=== PATIENT | female | born 1965 | race Caucasian/White ===

== ENCOUNTER → 2017-01-21 | Outpatient (REF) | payer BC, OTHER ==
[~2017-01-21] MED LIST: SERT25TA PO; VIMOVO PO
[2017-01-21 13:21] LABS: AMYLASE 87 U/L (25-115)
== END ==
LOC: M LAB REF 11:45
PROVIDERS: ATTEND Nurse Practitioner Family
DX: R10.9 Unspecified abdominal pain (principal)

== ENCOUNTER → 2017-03-10 | Outpatient (REF) | payer BC, OTHER ==
[2017-03-10 12:29] LABS: FERRITIN 128 NG/ML (8-252); GAMMA GLUTAMYLTRANSPEPTIDASE 175 U/L (5-55)
== END ==
LOC: M LAB REF 11:52
PROVIDERS: ATTEND Family Medicine
DX: R74.0 Nonspecific elevation of levels of transaminase and lactic acid dehydrogenase [LDH] (principal)

== ENCOUNTER → 2017-03-10 | Outpatient (REF) | payer BC, OTHER | LOC: M LAB REF 12:57 | PROVIDERS: ATTEND Family Medicine | DX: R74.0 Nonspecific elevation of levels of transaminase and lactic acid dehydrogenase [LDH] (principal) ==

== ENCOUNTER → 2017-03-25 | Outpatient (CLI) | payer BC, OTHER ==
[~2017-03-25] VITALS: Ht 152.4 cm; Wt 65.8 kg
[~2017-03-25] MED LIST changes: +NS 1,000 ML IV ONE; +PROPOFOL 200 MG/20 ML VIAL As Ordered ONE; +SIMETHICONE 40MG/0.6ML DROPS 30ML As Ordered ONE
--- NOTE | 2017-03-25 07:51 | ROOR ---
Patient Name: Aury Silva Procedure Date: 03/25/2017 7:29 AM Date of : 1965 Age: 51 Room: [facility] Gender: Female Note Status: Finalized Procedure: Colonoscopy Indications: Screening for colorectal malignant neoplasm Providers: Kieran Minaya Jr, MD Referring MD: Frankie Campbell MD Requesting Provider: Medicines: Propofol per Anesthesia Complications: No immediate complications. Procedure: Pre-Anesthesia Assessment: - Prior to the procedure, a History and Physical was performed, and patient medications and allergies were reviewed. The patient is competent. The risks and benefits of the procedure and the sedation options and risks were discussed with the patient. All questions were answered and informed consent was obtained. Patient identification and proposed procedure were verified by the physician and the nurse in the pre-procedure area and in the procedure room. Mental Status Examination: alert and oriented. Airway Examination: normal oropharyngeal airway and neck mobility. Respiratory Examination: clear to auscultation. CV Examination: normal. ASA Grade Assessment: II - A patient with mild systemic disease. After reviewing the risks and benefits, the patient was deemed in satisfactory condition to undergo the procedure. The anesthesia plan was to use moderate sedation / analgesia (conscious sedation). Immediately prior to administration of medications, the patient was re-assessed for adequacy to receive sedatives. The heart rate, respiratory rate, oxygen saturations, blood pressure, adequacy of pulmonary ventilation, and response to care were monitored throughout the procedure. The physical status of the patient was re-assessed after the procedure. The Colonoscope was introduced through the anus and advanced to the cecum, identified by appendiceal orifice and ileocecal valve. The colonoscopy was performed without difficulty. The patient tolerated the procedure well. The quality of the bowel preparation was adequate and excellent. Findings: The perianal and digital rectal examinations were normal. Pertinent negatives include normal sphincter tone, no palpable rectal lesions and no anal lesion or abnormality was detected. The rectum, recto-sigmoid colon, descending colon, transverse colon, ascending colon, cecum, appendiceal orifice and ileocecal valve appeared normal. A few small-mouthed diverticula were found in the sigmoid colon. Impression: - The rectum, recto-sigmoid colon, descending colon, transverse colon, ascending colon, cecum, appendiceal orifice and ileocecal valve are normal. - Diverticulosis in the sigmoid colon. - No specimens collected. Recommendation: - Discharge patient to home (ambulatory). - Repeat colonoscopy in 10 years for screening purposes. Kieran Minaya MD Kieran Minaya Jr, MD 03/25/2017 7:50:45 AM This report has been signed electronically. Number of Addenda: 0 Note Initiated On: 03/25/2017 7:29 AM Estimated Blood Loss: Estimated blood loss: none.
[2017-03-25 08:10] VITALS: BP 118/80
== END | disposition home or self-care (01) ==
LOC: M OPP 06:26
PROVIDERS: ATTEND Surgery
DX: Z12.11 Encounter for screening for malignant neoplasm of colon (principal); K57.30 Diverticulosis of large intestine without perforation or abscess without bleeding; M19.90 Unspecified osteoarthritis, unspecified site; Z88.0 Allergy status to penicillin; Z88.8 Allergy status to other drugs, medicaments and biological substances; Z91.018 Allergy to other foods; Z79.899 Other long term (current) drug therapy

== ENCOUNTER → 2017-04-14 | Outpatient (REF) | payer BC, OTHER ==
[~2017-04-14] MED LIST changes: -NS 1,000 ML IV ONE; -PROPOFOL 200 MG/20 ML VIAL As Ordered ONE; -SIMETHICONE 40MG/0.6ML DROPS 30ML As Ordered ONE
[2017-04-14 14:38] LABS: HEPATITIS B SURFACE ANTIBODY NEGATIVE (POSITIVE)
[2017-04-14 15:46] LABS: FERRITIN 72 NG/ML (8-252); PERCENT SATURATION 30.4 % (13.2-45.0); TOTAL IRON BINDING CAPACITY 359 UG/DL (250-450)
== END ==
LOC: M LAB REF 13:22
PROVIDERS: ATTEND Family Medicine
DX: R94.5 Abnormal results of liver function studies (principal)

== ENCOUNTER → 2017-07-29 | Outpatient (CLI) | payer BC, OTHER ==
--- NOTE | 2017-07-29 09:22 | REPMRS ---
Patient History The patient states she had a clinical breast exam in June 2017.No known family history of cancer. Reductions of both breasts, July 2012. Taking hormonal contraceptives for 1 year. Digital Mammo Screening Bilat: July 29, 2017 - Exam #: [id number] Bilateral CC and MLO view(s) were taken. Technologist: Argenis Gomes Technologist Prior study comparison: July 27, 2016, bilateral digital mammo screening bilat performed at [facility]. May 16, 2015, bilateral digital mammo screening bilat performed at [facility]. May 14, 2014, bilateral digital mammo screening bilat performed at [facility]. FINDINGS: The breast tissue is heterogeneously dense. This may lower the sensitivity of mammography. There is a moderate amount of heterogeneously dense fibroglandular tissue which is fairly symmetric. There is no interval development of dominant mass, architectural distortion, or clustered microcalcification typical of malignancy. There has been no change in the appearance of the mammogram from the prior studies. ASSESSMENT: BI-RADS/ACR category 1 mammogram. Negative. Recommendation Routine screening mammogram of both breasts in 1 year (for women over age 40). This mammogram was interpreted with the aid of an FDA-approved computer-aided dectection system. Electronically Signed By: Esau Nolan MD 07/29/17 0922
== END ==
LOC: M RAD 08:20
PROVIDERS: ATTEND Family Medicine
DX: Z12.31 Encounter for screening mammogram for malignant neoplasm of breast (principal)

== ENCOUNTER → 2017-08-19 | Outpatient (CLI) | payer BC, OTHER ==
--- NOTE | 2017-08-19 14:19 | REP ---
MRI LUMBAR SPINE WITHOUT CONTRAST: HISTORY: Degenerative disc disease. Low back pain with bilateral lower extremity numbness and tingling. TECHNIQUE: Sagittal and axial T1 and T2-weighted scans are acquired in the usual fashion with and without fat saturation. Sequences include spin echo, turbo spin echo, and STIR imaging sequences. MRI FINDINGS: Lumbar vertebral body heights are preserved. Alignment is normal. There is a small hemangioma in the right side of the L 2 vertebral body. Cortical and medullary bone signal intensity are otherwise normal. Conus medullaris is normal in position and appearance at L1. There are mild degenerative disc changes at L3-4 and L4-5 and to some degree at L5-S1. No extra vertebral abnormality is seen. Normal caliber aorta is noted. Axial and sagittal images at L1-2 and L2-3 show no significant abnormality. At L3-4, there is mild disc bulging diffusely. No neural foraminal narrowing or central canal stenosis is seen. There is mild facet hypertrophy at L3-4 and a small quantity of facet joint fluid is seen bilaterally. At L4-5, there is mild central canal stenosis due to diffuse disc bulging and ligamentum flavum and facet hypertrophy and developmentally somewhat short pedicles. Thecal sac has a mid sagittal AP dimension of 9 mm. No neural foraminal encroachment is seen. At L5-S1, there is moderate facet hypertrophy bilaterally. No other significant abnormality. IMPRESSION: Mild central canal stenosis and L4-5. Signed by Mane Nolan MD 08/19/2017 04:00 P
== END ==
LOC: M RAD 08:48
PROVIDERS: ATTEND Orthopaedic Surgery
DX: M51.37 Other intervertebral disc degeneration, lumbosacral region (principal); M51.36 Other intervertebral disc degeneration, lumbar region

== ENCOUNTER → 2018-08-02 | Outpatient (CLI) | payer BC, OTHER | LOC: M RAD 07:24 | DX: R92.2 Inconclusive mammogram (principal); R92.0 Mammographic microcalcification found on diagnostic imaging of breast | CPT/HCPCS: 77067 ==

== ENCOUNTER → 2018-08-25 | Outpatient (CLI) | payer BC, OTHER ==
--- NOTE | 2018-08-25 09:10 | REP ---
DIAGNOSTIC MAMMOGRAM LEFT BREAST: Multiple magnification views of the left breast performed and correlated with the recent mammogram of 08/02/2018. These magnification views confirm the presence of multiple clustered pleomorphic microcalcifications medially in the left breast somewhat superiorly. These are suspicious and biopsy is recommended. IMPRESSION: ACR 4 suspicious. Clustered pleomorphic microcalcifications in the upper inner left breast for which stereotactic biopsy is recommended. ACR 4 suspicious. BI-RADS/ACR category 4 mammogram. Suspicious abnormality - biopsy should be considered. Usually requires biopsy. This mammogram was interpreted with the aid of an FDA-approved computer-aided detection system. A. Negative x-ray reports should not delay biopsy if a dominant or clinically suspicious mass is present. B. Four to eight percent of cancers are not identified by x-ray. C. Adenosis and dense breasts may obscure an underlying neoplasm. The patient letter being requested is M4. Electronically Signed by Mika Menjivar MD 08/25/2018 11:45 A
== END ==
LOC: M RAD 08:31
PROVIDERS: ATTEND Obstetrics & Gynecology
DX: R92.0 Mammographic microcalcification found on diagnostic imaging of breast (principal)

== ENCOUNTER → 2019-01-26 | Outpatient (REF) | payer BC, OTHER ==
[~2019-01-26] MED LIST changes: -SERT25TA PO; +SERT25TA85 PO
[2019-01-26 12:11] LABS: ALBUMIN 4.4 GM/DL (3.2-5.2); ALT/SGPT 120 U/L (12-78); BLOOD UREA NITROGEN 12 MG/DL (7-18); CALCIUM LEVEL 9.7 MG/DL (8.5-10.1); CARBON DIOXIDE LEVEL 28 MEQ/L (21-32); CHLORIDE LEVEL 108 MEQ/L (98-107); CHOLESTEROL LEVEL 246 MG/DL (<200); CHOLESTEROL RISK RATIO 4.823 (<5); CREATININE FOR GFR 0.84 MG/DL (0.55-1.30); GLOMERULAR FILTRATION RATE > 60.0 (>51); GLUCOSE, FASTING 95 MG/DL (70-100); HDL CHOLESTEROL 51 MG/DL (>40); LDL CHOLESTEROL 171 MG/DL (<100); NON-HDL-C 195 MG/DL; POTASSIUM SERUM 4.4 MEQ/L (3.5-5.1); SODIUM LEVEL 142 MEQ/L (136-145); TOTAL PROTEIN 7.8 GM/DL (6.4-8.2); TRIGLYCERIDES LEVEL 119 MG/DL (<150)
== END ==
LOC: M SFHCCLAY 08:18
PROVIDERS: ATTEND Family Medicine
DX: Z13.220 Encounter for screening for lipoid disorders (principal); Z13.1 Encounter for screening for diabetes mellitus

== ENCOUNTER → 2019-10-25 | Outpatient (CLI) | payer BC, OTHER ==
--- NOTE | 2019-10-25 09:49 | REP ---
BILATERAL SCREENING DIGITAL MAMMOGRAM WITH 3D TOMOSYNTHESIS: There are no palpable abnormalities or other breast complaints. The the patient states she had a clinical breast examination September,. [facility] Lifetime Breast Cancer Risk Score is: 9.3% . Comparisons are 05/14/2014, 08/02/2018 and diagnostic left breast mammogram 08/25/2018. On 08/02/2089, 08/25/2018 a micro calcific cluster was identified in the left breast. The the patient had a stereotactic core biopsy of the left breast in September 05, 2018. The biopsy results were negative for carcinoma, benign. The breasts are heterogeneously dense, which could obscure small masses. There is no dominant mass, micro calcific cluster or architectural distortion that would indicate malignancy. The micro calcific cluster in the left breast is no longer identified. There is a biopsy marking clip in the location of the microcalcifications. There are no additional findings on 3D tomosynthesiss. There is no change from the prior study. Impression: BIRADS/ACR category 1 mammogram. Negative. Recommendation: Routine annual screening mammography. Because of the increased breast density, annual adjunctive breast MRI in addition to screening mammography is recommended. These can be performed at alternating six month intervals. This mammogram was interpreted with the aid of a FDA approved computer-aided detection system. A. Negative mammogram reports should not delay biopsy if a dominant or clinically suspicious mass is present. B. Not all breast cancers are identified by mammography or tomosynthesis. C. Adenosis and dense breasts may obscure an underlying neoplasm. Patient letter M1 dense breasts. Electronically Signed by Mika Rosenberg MD 10/25/2019 09:40 A
== END ==
LOC: M WHC 08:07
PROVIDERS: ATTEND Obstetrics & Gynecology
DX: Z12.31 Encounter for screening mammogram for malignant neoplasm of breast (principal)

== ENCOUNTER 2020-07-16 23:21 | Emergency (ER) | payer BC, OTHER ==
[~2020-07-16] VITALS: Ht 152.4 cm; Wt 63.6 kg
[2020-07-16 23:23] VITALS: BP 136/79
[2020-07-16] MEDS ORDERED: SPIR-10 PO (23:35)
[2020-07-16] MEDS ORDERED: BOOSTRIX/ADACEL VACCINE (DIPHTH/PERTUSS/ACELL/TETANUS) 0.5ML SYR IM ONE (23:45)
[2020-07-16] MEDS ORDERED: LIDOCAINE W/EPINEPHRINE 1% 20ML VIAL SC ONE (23:45)
== END 2020-07-17 00:06 | disposition home or self-care (01) ==
LOC: M ED 23:21
DX: S01.01XA Laceration without foreign body of scalp, initial encounter (principal); W01.190A Fall on same level from slipping, tripping and stumbling with subsequent striking against furniture, initial encounter; Y92.009 Unspecified place in unspecified non-institutional (private) residence as the place of occurrence of the external cause; Y93.89 Activity, other specified; Y99.8 Other external cause status; I10 Essential (primary) hypertension

== ENCOUNTER → 2020-10-28 | Outpatient (CLI) | payer BC, OTHER ==
[~2020-10-28] MED LIST changes: +SPIR-10 PO
--- NOTE | 2020-10-28 09:27 | REPMRS ---
Patient History The patient states she has not had a clinical breast exam in over a year. No known family history of cancer. Benign stereotactic core biopsy of the left breast, September 05, 2018. Reductions of both breasts, July 2012. Took hormonal contraceptives for 1 year. 3D TOMOSYNTHESIS WAS PERFORMED. The Ginger Napier lifetime risk for breast cancer is 9.1%. Volpara breast density c. Digital Woman Screen Mammo: October 28, 2020 - Exam #: [id number] Bilateral CC and MLO view(s) were taken. Technologist: Argenis Gomes, Technologist Prior study comparison: October 25, 2019, bilateral digital woman screen mammo performed at [facility]. August 25, 2018, left breast digital mammo diagnostic unilateral, performed at [facility]. FINDINGS: The breast tissue is heterogeneously dense. This may lower the sensitivity of mammography. There has been no change in the appearance of the mammogram from the prior studies. There is a moderate amount of residual fibroglandular tissue which is fairly symmetric. There is no interval development of dominant mass, areas of architectural distortion, or clustered microcalcification typical of malignancy. Assessment: BI-RADS/ACR category 1 mammogram. Negative Mammogram. Recommendation Routine screening mammogram in 1 year (for women over age 40). This mammogram was interpreted with the aid of an FDA-approved computer-aided dectection system. Electronically Signed By: Mika Menjivar MD 10/28/20 0926
--- NOTE | 2020-10-28 10:34 | REP ---
INDICATION: R92.2 DENSE BREAST. COMPARISON: Mammogram 10/28/2020. TECHNIQUE: Real-time sonographic evaluation of entire bilateral breasts performed. This is a screening exam for dense breasts. FINDINGS: No cystic or solid nodule is seen in either breast. Morphologically normal appearing axillary lymph nodes are present bilaterally with no significant cortical thickening, all demonstrating echogenic fatty ronni. Largest on the right measures 1.8 x 2.6 x 0.8 cm and on the left 1.7 x 1.5 x 0.8 cm. IMPRESSION: BIRADS/ACR category 2 benign. No suspicious cystic or solid mass. Normal appearing axillary lymph nodes present. RECOMMENDATION: Clinical follow-up. <Electronically signed by Mika Menjivar > 10/28/20 1031
== END ==
LOC: M WHC 07:00
PROVIDERS: ATTEND Obstetrics & Gynecology
DX: Z12.31 Encounter for screening mammogram for malignant neoplasm of breast (principal)

== ENCOUNTER → 2021-01-23 | Outpatient (CLI) | payer BC, OTHER ==
--- NOTE | 2021-01-23 12:04 | DEXAMM ---
INDICATION: N95.1 MENOPAUSAAL . COMPARISON: None. TECHNIQUE: Bone density was measured using dual-energy x-ray absorptionmetry (DEXA). FINDINGS: AP SPINE L1-L4 BMD 1.032 g/cm2 Young Adult T-Score -1.3 Age Matched Z-Score -0.6. LT FEMUR, TOTAL BMD 0.921 g/cm2 Young Adult T-Score -0.7 Age Matched Z-Score -0.1. LT NECK BMD 0.846 g/cm2 Young Adult T-Score -1.4 Age Matched Z-Score -0.4. RT FEMUR, TOTAL BMD 0.920 g/cm2 Young Adult T-Score -0.7 Age Matched Z-Score -0.1. RT NECK BMD 0.799 g/cm2 Young Adult T-Score -1.7 Age Matched Z-Score -0.7. IMPRESSION: There is low bone density of the spine. There is low bone density of the left hip. There is low bone density of the right hip. FOLLOW-UP: Recommendation for the next bone density exam: 2 years. <Electronically signed by Esau Nolan > 01/23/21 1200
== END ==
LOC: M WHC 07:53
PROVIDERS: ATTEND Nurse Practitioner Family
DX: N95.1 Menopausal and female climacteric states (principal); M85.851 Other specified disorders of bone density and structure, right thigh; M85.852 Other specified disorders of bone density and structure, left thigh; M85.88 Other specified disorders of bone density and structure, other site

== ENCOUNTER → 2024-07-07 | Outpatient (CLI) | payer OTHER | LOC: M RAD 12:01 | PROVIDERS: ATTEND Orthopaedic Surgery | DX: M77.12 Lateral epicondylitis, left elbow (principal) ==

== ENCOUNTER → 2025-01-08 | Outpatient (REF) | payer OTHER ==
[2025-01-08 13:31] LABS: HEPATITIS B SURFACE ANTIGEN NEGATIVE (NEGATIVE)
[2025-01-08 13:52] LABS: HEPATITIS B CORE ANTIBODY IGM NEGATIVE (NEGATIVE); HEPATITIS C VIRUS ABY INDEX 0.04 INDEX (<0.8)
== END ==
LOC: M LAB REF 11:58
PROVIDERS: ATTEND Physician Assistant Medical
DX: R94.5 Abnormal results of liver function studies (principal)